=== PATIENT | male | born 1950 | race African-American/Black ===

== ENCOUNTER 2017-09-21 12:36 | Emergency (ER) | payer SELFPAY ==
[2017-09-21 12:54] VITALS: BP 162/91
--- NOTE | 2017-09-21 13:00 | ED Physician Documentation ---
General Adult - HISTORIAN Historian: patient - HPI Stated Complaint: cough, chills Chief Complaint: General Adult Additional Information: Cough productive of yellow mucus for 3-4 days. Night sweats. Ribs and stomach sore with cough. No fever. 1 PPD smoker for 30 years. No treatment attempted. No other associated signs. - ROS CONST: sweating - PAST HX Past History: none Surgeries/Procedures: none Allergies/Adverse Reactions: Allergies Allergy/AdvReac Type Severity Reaction Status Date / Time No Known Allergies Allergy Verified 09/21/17 12:48 Home Medications: Ambulatory Orders Medication Instructions Recorded NK [NK] 09/21/17 - SOCIAL HX Smoking History: cigarettes Alcohol Use: heavy (on weekends) - FAMILY HX Family History: No - VITAL SIGNS Vital Signs: Vital Signs Temp Pulse Resp BP Pulse Ox 97.9 F 67 20 162/91 96 09/21/17 12:50 09/21/17 12:50 09/21/17 12:50 09/21/17 12:50 09/21/17 12:50 - REVIEWED ASSESSMENTS Nursing Assessment Reviewed: Yes Vitals Reviewed: Yes General Adult Physical Exam - PHYSICAL EXAM GENERAL APPEARANCE: mild distress EENT: eye inspection normal, ENT inspection normal, pharynx normal, other ( voice slightly raspy) NECK: normal inspection, supple RESPIRATORY: rales (throughout. 96% on room air) CVS: reg rate & rhythm, heart sounds normal BACK: normal inspection, no CVA tenderness SKIN: warm/dry, normal color EXTREMITIES: normal range of motion (gait and stance) NEURO: CN's nml as tested, motor nml, sensation nml, cognition normal Discharge Clincal Impression: Bronchitis Referrals: Primary Doctor,No [Primary Care Provider] - 2 Days Condition: Good Disposition: 01 HOME, SELF-CARE Decision to Admit: NO Decision Time: 13:00
== END 2017-09-21 13:02 | disposition home or self-care (01) ==
LOC: ED 12:36
DX: J40 Bronchitis, not specified as acute or chronic (principal); F17.210 Nicotine dependence, cigarettes, uncomplicated
CPT/HCPCS: 99282